=== PATIENT | female | born 1990 | race Caucasian/White ===

== ENCOUNTER → 2022-03-04 08:39 | Outpatient (CLI) | payer OTHER, SELFPAY ==
--- NOTE | ~2022-03-04 | US_ITS ---
EXAMINATION: US soft tissue buttock LT DATE: 03/04/2022 08:52 INDICATION: Subcutaneous nodule at the left buttock TECHNIQUE: Multiple grayscale and Doppler ultrasound images of the region of concern at the left butt ock were obtained. COMPARISON: None FINDINGS: 2.1 x 1.3 x 2.0 cm subtle subcutaneous nodule at the region of concern which is isoechoic and with si milar echotexture as the surrounding fat. This nearly indiscernible aside from a subtle curvilinear p eripheral capsule. No increased internal vascular flow or surrounding hyperemia on color Doppler. IMPRESSION: 1. Non specific 2.1 cm subcutaneous nodule at the region of concern with appearance most consistent w ith and statistically most likely to represent a lipoma. Reviewed, dictated and finalized at location L. [facility] IMPRESSION: 1. Non specific 2.1 cm subcutaneous nodule at the region of concern with appear ance most consistent with and statistically most likely to represent a lipoma.
== END ==
PROVIDERS: PCP Physician Assistant; Visit Provider Physician Assistant
DX: R22.2 Localized swelling, mass and lump, trunk (principal)
CPT/HCPCS: 76705

== ENCOUNTER 2023-01-05 01:09 | Day surgery (SDC) | payer OTHER, SELFPAY ==
[2022-12-29 09:54] VITALS: BMI 31.0
--- NOTE | 2022-12-29 09:59 | PC.NURSE ---
Report to the Outpatient Waiting Room, entrance under the green pavilion located off [facility], at time 0630 on date 01/05/23. Planned Procedure Time: 0730. Time changes happen often and if your time is changed the preop area will call you the afternoon before. - You and your visitor will be asked to self-screen and do not enter if you have any COVID symptoms. - A mask is optional within the hospital at this time. Patients may have LIGHT BREAKFAST. Take the following medications with a SIP of water the morning of surgery: PRESCRIBED DO NOT STOP ANY OF YOUR OTHER PRESCRIPTION MEDICATIONS PRIOR TO SURGERY ?EXCEPT THE FOLLOWING Medications to discontinue per physician: N/A Date to take last dose: N/A Please no make-up, nail somali, hairspray, perfume, deodorant, or body powder the day of surgery. No jewelry (including any body piercings) or valuables the day of surgery, leave them at home. Please take a shower or bath the night before, or the morning of, surgery with an antibacterial soap. Wear comfortable, loose fitting clothing. - Jewelry must be removed prior to entering the operating room. Rings and piercings that are not removed may be cut off. - The hospital will not accept responsibility for valuables. - Please leave all valuables, including medications, at home the day of surgery. YOU MAY DRIVE YOURSELF HOME AFTER THE PROCEDURE. Follow any additional instructions given to you from your surgeon. If you or anyone in your household have experienced Covid symptoms in the past week, please notify your surgeon or the nurse liaison at the phone number below for possible testing. Telephone instructions given to PT - DAIJA LAL and asked if any additional questions and then verbalized understanding. Patient advised to call surgeon office or pre surgery nurse liaison [phone] if any additional questions.
[2023-01-05 06:40] VITALS: BP 132/89; PULSE 93; RESP 16; TEMP 36.5; O2SAT 100; BMI 31.5
--- NOTE | 2023-01-05 07:12 | WPDHPUPDATE1 ---
History and Physical Update Update Date/Time: 01/05/23 07:12 History and Physical has been reviewed, including an updated exam of the patient. There are NO changes in the patient's condition. Risks, benefits, and alternatives have been discussed and questions answered. Patient agrees to proceed with procedure.
[2023-01-05] MEDS: BUPIVACAINE/EPINEPHRINE 0.5% 50 ML VIAL 20 ML INFILTRATE (07:27)
[2023-01-05 07:30] VITALS: BP 121/65; PULSE 94; RESP 16; O2SAT 99
[2023-01-05 07:40] VITALS: BP 121/84; PULSE 95; RESP 16; O2SAT 100
[2023-01-05 07:50] VITALS: BP 108/63; PULSE 82; RESP 16; O2SAT 98
[2023-01-05 07:59] VITALS: BP 119/65; PULSE 83; RESP 16; O2SAT 100
--- NOTE | 2023-01-05 08:13 | W.PM.PROC2 ---
Procedure Note - Detailed Date of Procedure 01/05/23 Pre-op Diagnosis Subcutaneous Mass Left Buttock Post-op Diagnosis Same Procedure Performed Excision 2 cm subcutaneous mass left lateral upper buttocks Surgeon Cesar Flores MD Anesthesia Local (0.5% Marcaine with epinephrine) Indications Patient has noticed a subcutaneous mass in the upper outer aspect of her left buttocks near her hip. She has been having some discomfort in her back and in the area of the nodule. By ultrasound it was a 2 cm lesion most likely a lipoma. By my clinical exam it also appears to be a 2 cm lipoma. She is taken to surgery now for excision under local anesthesia. Findings Fatty nodule consistent with small lipoma, measured 2 cm x 1.8 cm x 1.3 cm Description of Procedure Patient was taken to the operating room and placed in right lateral decubitus position. I had marked the area of the nodule in the preoperative holding area. The area on the upper buttock left hip was then prepped and draped. I palpated the nodule and it was actually a little farther caudal in this position that was in the holding area. I brenton a 2nd transversely oriented aurora to plan the incision. Local anesthetic was infiltrated into the skin and into the subcutaneous all around the day subcutaneous mass. Incision was then made and dissection was carried down through the superficial subcutaneous. Cautery was used for hemostasis. The nodule was easily seen. It was pretty superficial. Using blunt and sharp dissection, I was able to excise the nodule taking no margin of normal tissue. Once it was excised, I measured the nodule with dimensions as noted above. It appeared to be a lipoma. It was sent to pathology in formalin. The wound was made hemostatic with the cautery. It was closed with subcuticular interrupted 3-0 Vicryl suture followed by a running 4-0 Monocryl skin suture. The wound was dressed with Exofin surgical adhesive. The patient tolerated the procedure well and was quite comfortable. She transferred back onto a cart and out to same-day surgery without incident. Sponge and needle counts were correct x2. Estimated Blood Loss -2 Drains No Packing No Pathology Yes (Subcutaneous mass) Complications No immediate complications Condition Stable Disposition Same day [facility] Billing Surgery - Charge Forward: Surgery Billing (Excision 2 cm lipoma left hip/buttocks)
== END 2023-01-05 08:30 | disposition home or self-care (01) ==
PROVIDERS: PCP Physician Assistant; Visit Provider Surgery
PROC: (CPT 11402; principal; 2023-01-05 07:30)
DX: D17.1 Benign lipomatous neoplasm of skin and subcutaneous tissue of trunk (principal); Z84.0 Family history of diseases of the skin and subcutaneous tissue
CPT/HCPCS: 11402; 12032; 88304